=== PATIENT | female | born 1930 | race Caucasian/White ===

== ENCOUNTER 2016-09-25 09:45 | Emergency (ER) | payer MEDICARE, OTHER ==
[~2016-09-25] VITALS: Ht 157.5 cm; Wt 63.0 kg
[2016-09-25 11:11] LABS: BASOPHILS % (AUTO) 0 % (0-10); EOSINOPHILS # (AUTO) 0.2 10^3/uL (0.0-0.3); EOSINOPHILS % (AUTO) 4 % (0-10); LYMPHOCYTES % (AUTO) 23 % (12-44); MEAN CORPUSCULAR HEMOGLOBIN 33 PG (25-34); MEAN CORPUSCULAR HGB CONC 33 G/DL (32-36); MEAN CORPUSCULAR VOLUME 99 FL (80-99); MEAN PLATELET VOLUME 9.4 FL (7.4-10.4); MONOCYTES # (AUTO) 0.3 X 10^3 (0.0-1.0); MONOCYTES % (AUTO) 7 % (0-12); NEUTROPHILS # (AUTO) 2.7 X 10^3 (1.8-7.8); NEUTROPHILS % (AUTO) 65 % (42-75); PLATELET COUNT 246 10^3/uL (130-400); RED BLOOD COUNT 2.98 10^6/uL (4.35-5.85); RED CELL DISTRIBUTION WIDTH 12.7 % (10.0-14.5); WHITE BLOOD COUNT 4.1 10^3/uL (4.3-11.0)
[2016-09-25 11:24] LABS: ALBUMIN 3.7 GM/DL (3.2-4.5); BILIRUBIN,TOTAL 0.3 MG/DL (0.1-1.0); CALCIUM 9.7 MG/DL (8.5-10.1); CREATININE SERUM 1.13 MG/DL (0.60-1.30); POTASSIUM 3.7 MMOL/L (3.6-5.0); TOTAL PROTEIN 6.1 GM/DL (6.4-8.2)
--- NOTE | 2016-09-25 12:11 | ED General ---
General Chief Complaint: General Problems/Pain Stated Complaint: POSS DEHYDRATED/SLEEPLESSNESS Nursing Triage Note: PT DAUGHTER REPORTS PT WAS UNABLE TO SLEEP LAST NOC. SHE STATES SHE HAS HAD A "CHRONIC COUGH" AND HAS SOME DIFFICULTY SWALLOWING. PT DAUGHTER REPORTS SHE IS CONCERNED FOR GOITER. SHE STATES PT HAS NOT BEEN ACTING RIGHT AND SHE WANTS HER BRAIN CHECKED OUT BECAUSE OF HER AGE. Nursing Sepsis Screen: No Definite Risk Source of Information: Patient Exam Limitations: No Limitations (CEE DENNY MD) History of Present Illness Time Seen by Provider: 12:07 Initial Comments The patient is an 86-year-old white female brought to the emergency room by her daughter. The concern is general. She is apparently not been herself for the last 2-4 weeks. The daughter notes that she at times seems to word search. There has been no loss of motor skills. She seems to be less physically active than previously. She is disturbed because she thinks she did not sleep at all last night but this is not a usual occurrence. She reports being physically active and knows her lawn and cleans up the stalls after her horses. She has a history of hypothyroidism and the daughter is concerned about the possibility of goiter as she coughs and has some swallowing difficulty particularly with large pills. Associated Systoms: Cough (chronic) (CEE DENNY MD) Constitutional: see HPI EENTM: nose congestion Respiratory: see HPI Cardiovascular: no symptoms reported Gastrointestinal: no symptoms reported Genitourinary: no symptoms reported Musculoskeletal: no symptoms reported Skin: no symptoms reported Psychiatric/Neurological: No Symptoms Reported Hematologic/Lymphatic: No Symptoms Reported Immunological/Allergic: no symptoms reported (CEE DENNY MD) Past Lfdocja-Zqmrxr-Tdzxkd Hx Patient Social History Alcohol Use: Rarely Uses Recreational Drug Use: No Smoking Status: Never a Smoker 2nd Hand Smoke Exposure: No Recent Foreign Travel: No Contact w/Someone Who Travel: No Recent Infectious Disease Expo: No Recent Hopitalizations: No (CEE DENNY MD) Seasonal Allergies Seasonal Allergies: No (CEE DENNY MD) Cardiovascular Cardiac Disorders: Hypertension (CEE DENNY MD) Physical Exam Vital Signs Vital Sign - Last 12Hours 09/25/16 09:55 Temp 98.2 Pulse 84 Resp 16 B/P (MAP) 184/79 Pulse Ox 98 O2 Delivery Room Air (CONCEPCIÓN GODDARD MD) Vital Signs Capillary Refill : Less Than 3 Seconds (CEE DENNY MD) General Appearance: No Apparent Distress, WD/WN Eyes: Bilateral Eye Normal Inspection HEENT: Normal ENT Inspection Neck: Normal Inspection Respiratory: Chest Non Tender, Lungs Clear, Normal Breath Sounds, No Accessory Muscle Use, No Respiratory Distress Cardiovascular: Regular Rate, Rhythm, No Edema, No Gallop, No JVD, No Murmur, Normal Peripheral Pulses Back: Normal Inspection Extremity: Normal Capillary Refill, Normal Inspection, Normal Range of Motion, Non Tender, No Calf Tenderness, No Pedal Edema Neurologic/Psychiatric: Alert, Oriented x3, No Motor/Sensory Deficits, Normal Mood/Affect Skin: Normal Color Lymphatic: No Adenopathy (CEE DENNY MD) Progress/Results/Core Measures Results/Orders Lab Results Laboratory Tests Test 09/25/16 11:00 09/25/16 12:32 Range/Units White Blood Count 4.1 L 4.3-11.0 10^3/uL Red Blood Count 2.98 L 4.35-5.85 10^6/uL Hemoglobin 9.8 L 11.5-16.0 G/DL Hematocrit 30 L 35-52 % Mean Corpuscular Volume 99 80-99 FL Mean Corpuscular Hemoglobin 33 25-34 PG Mean Corpuscular Hemoglobin Concent 33 32-36 G/DL Red Cell Distribution Width 12.7 10.0-14.5 % Platelet Count 246 130-400 10^3/uL Mean Platelet Volume 9.4 7.4-10.4 FL Neutrophils (%) (Auto) 65 42-75 % Lymphocytes (%) (Auto) 23 12-44 % Monocytes (%) (Auto) 7 0-12 % Eosinophils (%) (Auto) 4 0-10 % Basophils (%) (Auto) 0 0-10 % Neutrophils # (Auto) 2.7 1.8-7.8 X 10^3 Lymphocytes # (Auto) 1.0 1.0-4.0 X 10^3 Monocytes # (Auto) 0.3 0.0-1.0 X 10^3 Eosinophils # (Auto) 0.2 0.0-0.3 10^3/uL Basophils # (Auto) 0.0 0.0-0.1 10^3/uL Sodium Level 131 L 135-145 MMOL/L Potassium Level 3.7 3.6-5.0 MMOL/L Chloride Level 96 L 98-107 MMOL/L Carbon Dioxide Level 29 21-32 MMOL/L Anion Gap 6 5-14 MMOL/L Blood Urea Nitrogen 12 7-18 MG/DL Creatinine 1.13 0.60-1.30 MG/DL Estimat Glomerular Filtration Rate 46 BUN/Creatinine Ratio 11 Glucose Level 124 H 70-105 MG/DL Calcium Level 9.7 8.5-10.1 MG/DL Total Bilirubin 0.3 0.1-1.0 MG/DL Aspartate Amino Transf (AST/SGOT) 25 5-34 U/L Alanine Aminotransferase (ALT/SGPT) 18 0-55 U/L Alkaline Phosphatase 60 40-136 U/L Total Protein 6.1 L 6.4-8.2 GM/DL Albumin 3.7 3.2-4.5 GM/DL Urine Color YELLOW Urine Clarity CLEAR Urine pH 7 5-9 [address]rine Specific [place] 1.005 L 1.016-1.022 Urine Protein NEGATIVE NEGATIVE Urine Glucose (UA) NEGATIVE NEGATIVE Urine Ketones NEGATIVE NEGATIVE Urine Nitrite NEGATIVE NEGATIVE Urine Bilirubin NEGATIVE NEGATIVE Urine Urobilinogen NORMAL NORMAL MG/DL Urine Leukocyte Esterase NEGATIVE NEGATIVE Urine RBC (Auto) NEGATIVE NEGATIVE Urine RBC NONE /HPF Urine WBC RARE /HPF Urine Squamous Epithelial Cells RARE /HPF Urine Crystals NONE /LPF Urine Bacteria NEGATIVE /HPF Urine Casts NONE /LPF Urine Mucus NEGATIVE /LPF Urine Culture Indicated NO (CONCEPCIÓN GODDARD MD) Vital Signs/I&O Vital Sign - Last 12Hours 09/25/16 09:55 Temp 98.2 Pulse 84 Resp 16 B/P (MAP) 184/79 Pulse Ox 98 O2 Delivery Room Air (CONCEPCIÓN GODDARD MD) Blood Pressure Mean: 114 Progress Note : Progress Note Assumed care of the patient from Dr. DENNY at 1220 pending., Chest x-ray and CT. Monitor patient. 1315: I have reviewed all of the data as well as interviewed and evaluated the patient. No significant acute findings noted and this was discussed with the patient and her daughter. We did discuss aging and her ongoing medical problems including anemia and hypothyroidism. Overall patient is doing quite well. She will follow-up with her doctor next week for further evaluation related to the thyroid and her anemia. We did discuss diet and appropriate amount food and fluid needs. Patient does admit to ruminating about medical concerns last night and states that is likely why she did not sleep well last night. Patient and daughter very appreciative of care and evaluation. Discharged home with return precautions. Patient verbalize understanding instructions and agreement with plan. (CONCEPCIÓN GODDARD MD) Diagnostic Imaging Diagonstic Imaging: CT Plain Films/CT/US/NM/MRI: head Comments [facility] [place] [place] NAME: [facility]AR [facility] REC#: [id number] PT STATUS: REG ER : 1930 PHYSICIAN: CEE DENNY MD ADMIT DATE: 09/25/16/ER Draft Date of Exam:09/25/16 CT HEAD WO INDICATION: Confusion. Altered mental status. TECHNIQUE: Routine non contrast-enhanced axial images were obtained from the skull base to the vertex. COMPARISON: None. FINDINGS: The ventricles and cortical sulci are diffusely prominent, compatible with age-related volume loss. There are confluent areas of abnormal, low attenuation in the periventricular white matter. This is consistent with small vessel ischemic changes; age-indeterminate. There is no prior study available for comparison. There is no midline shift or mass-effect. No acute intra-axial hemorrhage is seen. There are no abnormal areas of increased or decreased density to suggest acute hemorrhage or edema. No extra-axial masses or collections are present. The bony calvarium is intact. The visualized paranasal sinuses are unremarkable. The mastoid air cells are clear. IMPRESSION: 1. No acute intracranial abnormality. No CT evidence of mass, acute infarct or intracranial hemorrhage. 2. Small vessel ischemic changes in the periventricular and subcortical white matter; likely chronic. Dictated on workstation # [id number] Dict: 09/25/16 1242 Trans: 09/25/16 1245 [facility] [id number] Interpreted by: CIERRA COPELAND Electronically signed by: Diagonstic Imaging: Xray Plain Films/CT/US/NM/MRI: chest Comments [facility] [place], [place] NAME: MARIMAR [facility] REC#: [id number] PT STATUS: REG ER : 1930 PHYSICIAN: CEE DENNY MD ADMIT DATE: 09/25/16/ER Draft Date of Exam:09/25/16 CHEST 1 VIEW, AP/PA ONLY Portable upright radiograph of the chest. INDICATION: Chronic cough. FINDINGS: There is minimal left basilar atelectasis or scarring. The right lung is clear. The heart size is normal. No effusion or pneumothorax. The mediastinum and freddie appear unremarkable. IMPRESSION: Minimal left basilar atelectasis or scarring. Dictated on workstation # [id number] Dict: 09/25/16 1231 Trans: 09/25/16 1234 [id number] Interpreted by: AMANDA DAVE MD Electronically signed by: (CONCEPCIÓN GODDARD MD) Departure Impression Impression: Primary Impression: Malaise Additional Impression: Forgetfulness Disposition: 01 HOME, SELF-CARE Condition: Stable Departure-Patient Inst. Referrals: BARRY ALMONTE MD (PCP) Primary Care Physician FATOU SRIVASTAVA MD (Family) Primary Care Physician Patient Instructions: Fatigue (DC) Add. Discharge Instructions: All discharge instructions reviewed with patient and/or family. Voiced understanding. Continue home medications as directed. Eat a normal diet and drink adequate amount of fluids. Follow up with your Dr. in a few days for recheck as well as for your anemia and thyroid concerns. Return for worse pain, fever, vomiting, weakness, breathing problems or other concerns as needed. CEE DENNY MD Sep 25, 2016 12:11 CONCEPCIÓN GODDARD MD Sep 25, 2016 13:24
--- NOTE | 2016-09-25 12:34 | Diagnostic Imaging Report ---
Portable upright radiograph of the chest. INDICATION: Chronic cough. FINDINGS: There is minimal left basilar atelectasis or scarring. The right lung is clear. The heart size is normal. No effusion or pneumothorax. The mediastinum and freddie appear unremarkable. IMPRESSION: Minimal left basilar atelectasis or scarring. Dictated by: Dictated on workstation # [id number]
[2016-09-25 12:44] LABS: BILIRUBIN,URINE NEGATIVE (NEGATIVE); KETONES,URINE NEGATIVE (NEGATIVE); LEUKOCYTE ESTERASE ,URINE NEGATIVE (NEGATIVE); NITRITE,URINE NEGATIVE (NEGATIVE); PH,URINE 7 (5-9); PROTEIN,URINE NEGATIVE (NEGATIVE); UROBILINOGEN,URINE NORMAL (NORMAL)
--- NOTE | 2016-09-25 12:45 | Diagnostic Imaging Report ---
INDICATION: Confusion. Altered mental status. TECHNIQUE: Routine non contrast-enhanced axial images were obtained from the skull base to the vertex. COMPARISON: None. FINDINGS: The ventricles and cortical sulci are diffusely prominent, compatible with age-related volume loss. There are confluent areas of abnormal, low attenuation in the periventricular white matter. This is consistent with small vessel ischemic changes; age-indeterminate. There is no prior study available for comparison. There is no midline shift or mass-effect. No acute intra-axial hemorrhage is seen. There are no abnormal areas of increased or decreased density to suggest acute hemorrhage or edema. No extra-axial masses or collections are present. The bony calvarium is intact. The visualized paranasal sinuses are unremarkable. The mastoid air cells are clear. IMPRESSION: 1. No acute intracranial abnormality. No CT evidence of mass, acute infarct or intracranial hemorrhage. 2. Small vessel ischemic changes in the periventricular and subcortical white matter; likely chronic. Dictated by: Dictated on workstation # [id number]
[2016-09-25 12:56] LABS: SQUAMOUS EPITHELIAL CELL,UR RARE /HPF; WBC,URINE RARE /HPF
[2016-09-25 13:31] VITALS: BP 176/84
== END 2016-09-25 13:31 | disposition home or self-care (01) ==
LOC: ER 09:50
DX: R53.81 Other malaise (principal); R41.3 Other amnesia; E03.9 Hypothyroidism, unspecified; I10 Essential (primary) hypertension
CPT/HCPCS: 36415; 70450; 71010; 80053; 81000; 85025; 99282

== ENCOUNTER 2017-07-04 05:46 | Outpatient (CLI) | payer MEDICARE ==
[~2017-07-04] VITALS: Ht 157.5 cm; Wt 63.0 kg
[2017-07-04] MEDS ORDERED: THYR90TA12 PO (10:37)
[2017-07-04] MEDS ORDERED: LOSA1TAB20 PO (10:37)
== END 2017-07-04 10:39 ==
LOC: PREOP 05:46
PROVIDERS: ATTEND Surgery
DX: Z01.818 Encounter for other preprocedural examination (principal); D50.9 Iron deficiency anemia, unspecified; R19.4 Change in bowel habit

== ENCOUNTER 2017-07-08 09:08 | Day surgery (SDC) | payer MEDICARE ==
[~2017-07-08] VITALS: Ht 162.6 cm; Wt 63.0 kg
[~2017-07-08 09:08] MED LIST: LOSA1TAB20 PO; THYR90TA12 PO
[2017-07-08] MEDS ORDERED: NS IV 500 ML 500 ML ONE (09:15)
[2017-07-08 09:25] VITALS: BP 142/67
[2017-07-08] MEDS ORDERED: NS IV 500 ML 500 ML IV PRN (09:25)
[2017-07-08] MEDS ORDERED: NS IV 500 ML 500 ML IV SCH (09:30)
[2017-07-08] MEDS ORDERED: HURRICAINE EXT TUBE (BENZOCAINE) XX PRN (09:30)
[2017-07-08 09:53] LABS: HEMOGLOBIN 8.8 G/DL (11.5-16.0); RED BLOOD COUNT 2.77 10^6/uL (4.35-5.85); RED CELL DISTRIBUTION WIDTH 14.3 % (10.0-14.5); WHITE BLOOD COUNT 3.5 10^3/uL (4.3-11.0)
[2017-07-08] MEDS ORDERED: HURRICAINE EXT TUBE (BENZOCAINE) ONE (11:37)
[2017-07-08] MEDS ORDERED: fentaNYL INJECTION 100 MCG/2 ML AMP ONE (11:37)
[2017-07-08] MEDS ORDERED: MIDAZOLAM 2 MG/2 ML (VERSED) VIAL ONE ×2 (11:37)
[2017-07-08] MEDS: fentaNYL INJECTION 100 MCG/2 ML AMP IVP PRN ×4 (11:53→12:08)
[2017-07-08] MEDS: MIDAZOLAM 2 MG/2 ML (VERSED) VIAL IVP PRN ×4 (11:54→12:10)
--- NOTE | 2017-07-08 12:06 | HISTORY AND PHYSICAL ---
DATE OF SERVICE: 07/08/2017 DIAGNOSES: 1. Iron deficiency anemia. 2. Change in bowel habits. HISTORY OF PRESENT ILLNESS: This lady, who tends to be active, has been found to be anemic with an iron deficiency picture. In addition, she reports a recent change in her bowel habits, with a tendency toward constipation. She reports a history of a bleeding peptic ulcer 35 years ago; she has not undergone screening colonoscopy in her lifetime. PAST MEDICAL HISTORY: Hypertension. MEDICATIONS: Losartan. PERSONAL AND SOCIAL HISTORY: Despite her advanced age, she is quite active and independent. PHYSICAL EXAMINATION: GENERAL: She appears to be reasonably comfortable. NECK: Supple and there is no jugular venous distention. ABDOMEN: Soft and nontender. ASSESSMENT: Lady with iron deficiency anemia. Previous history of gastric ulcer. I have offered upper endoscopy with concomitant colonoscopy. I've also discussed the differential diagnosis of recurrent ulcers and polyps. She seems to understand and the procedure will be performed today. Job ID: [id number] DocumentID: [id number] Dictated Date: 07/08/2017 11:49:24 [employer] Date: 07/08/2017 12:05:17 Dictated By: MONCHO CAICEDO MD MTDD
[2017-07-08 12:50] VITALS: BP 152/75
[2017-07-08 13:20] VITALS: BP 140/63
[2017-07-08 13:30] VITALS: BP 140/63
--- NOTE | 2017-07-08 14:09 | Conscious Sedation/ASA ---
Conscious Sedation Pre-Proced Time Reviewed: 10:05 ASA Class: 2 Airway Mallampati Classification: ([place] appropriate class) I. II. III, IV Lungs Heart ASA score ASA 1: a normal healthy patient ASA 2: a patient with a mild systemic disease (mid diabetes, controlled hypertension, obesity ASA 3: a patient with a severe systemic disease that limits activity (angina , COPD, prior Myocardial infarction) ASA 4: a patient with an incapacitating disease that is a constant threat to life (CHF, renal failure) ASA 5: a moribund patient not expected to survive 24 hrs. (ruptured aneurysm) ASA 6: a declared brain patient whose organs are being harvested. For emergent operations, add the letter E after the classification Grade 1 Sedation Plan: Discussed options with patient/fam Note The patient is an appropriate candidate to undergo the planned procedure, sedation, and anesthesia. The patient immediately re-assessed prior to indication. MONCHO CAICEDO MD July 08, 2017 2:09 pm
--- NOTE | 2017-07-08 17:44 | OPERATIVE REPORT ---
DATE OF SERVICE: 07/08/2017 PROCEDURE #1: Upper GI endoscopy/biopsy of a sessile lesion in the duodenum. SURGEON: Moncho Caicedo MD INDICATION FOR PROCEDURE: This lady came in for an upper endoscopy with concomitant colonoscopy to evaluate iron deficiency anemia. She reported a history of bleeding peptic ulcers more than 35 years ago and has not undergone screening colonoscopy in her lifetime. Informed consent was obtained after reviewing the procedures in detail. DESCRIPTION OF PROCEDURE: EGD/biopsy of lesion in the duodenum. She was placed in left lateral decubitus position and her vital signs were monitored. Conscious sedation was achieved using Versed and fentanyl. The flexible gastroscope was introduced down the esophagus, past the stomach, into the proximal duodenum. FINDINGS: Esophagus: Quite tortuous with a long hiatal hernia. No mucosal lesion was identified. Stomach: Normal. Duodenum: A sessile lesion about 8 mm in diameter was found at the first part, just past the pyloric opening. Multiple biopsies were obtained. She tolerated the procedure well and was turned around in preparation for colonoscopy. IMPRESSION: Iron deficiency anemia. Sessile lesion in the duodenum. Biopsy pending. PROCEDURE #2: Colonoscopy. Digital rectal examination was unremarkable. The colonoscope was then introduced into the rectum and advanced with difficulty to the cecum. The quality of bowel preparation was excellent. The scope was then withdrawn slowly and the mucosa examined in a systematic fashion. FINDINGS: Very few sigmoid diverticula. No polyps were found. She tolerated the procedures well and was taken back to the nursing area in a stable condition. IMPRESSION: Iron deficiency anemia. No polyps. Job ID: [id number] DocumentID: [id number] Dictated Date: 07/08/2017 12:38:53 [facility] Nurse Date: 07/08/2017 17:43:49 Dictated By: MONCHO CAICEDO MD [facility]
== END 2017-07-08 13:30 | disposition home or self-care (01) ==
LOC: ENDO 09:08
PROVIDERS: ATTEND Surgery
DX: D50.9 Iron deficiency anemia, unspecified (principal); K57.30 Diverticulosis of large intestine without perforation or abscess without bleeding; R19.4 Change in bowel habit; I10 Essential (primary) hypertension
CPT/HCPCS: 36415; 85027; 88305

== ENCOUNTER → 2018-11-27 | Outpatient (CLI) | payer MEDICARE ==
--- NOTE | 2018-11-27 12:46 | Diagnostic Imaging Report ---
Right hand 1011 hours. INDICATION: Fall, hand pain. 3 views were obtained. There are no prior studies available for comparison. FINDINGS: There is no fracture, dislocation or acute bony abnormality evident. The osseous structures are demineralized and there is fairly severe degenerative disease involving the PIP and DIP joints and the triscaphe joint. There is also moderate narrowing of the radiocarpal joint. Soft tissues are unremarkable. IMPRESSION: There is no evidence for an acute bony abnormality. Dictated by: Dictated on workstation # [id number]
--- NOTE | 2018-11-27 13:07 | Diagnostic Imaging Report ---
EXAMINATION: Right hip at 10:17 a.m. INDICATION: Hip pain. AP and lateral views were obtained. There are no prior studies available for comparison. FINDINGS: There is no fracture, dislocation, or acute bony abnormality evident. There is moderate degenerative disease of the hip joint and mild sclerosis of the right sacroiliac joint. There also appears to be fairly severe degenerative disc and bony disease in the visualized lower lumbar spine. The soft tissues are unremarkable. IMPRESSION: 1. There is no evidence for an acute bony abnormality. 2. 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 There is also fairly severe degenerative disc and bony disease of the visualized lower lumbar spine. Dictated by: Dictated on workstation # [id number]
== END ==
LOC: RAD FS 10:08
PROVIDERS: ATTEND Nurse Practitioner
DX: M16.11 Unilateral primary osteoarthritis, right hip (principal); M47.816 Spondylosis without myelopathy or radiculopathy, lumbar region; M51.36 Other intervertebral disc degeneration, lumbar region; M79.641 Pain in right hand; W19.XXXA Unspecified fall, initial encounter
CPT/HCPCS: 73130; 73502

== ENCOUNTER 2019-07-06 11:46 | Outpatient (RCR) | payer MEDICARE, MEDICAID ==
[2019-06-26 12:22] VITALS: BP 125/64
[2019-06-29 10:10] VITALS: BP 162/73
[~2019-07-06 11:46] MED LIST changes: +IRON SUCROSE 200 MG/10 ML (VENOFER) VIAL IV ONE; +IRON SUCROSE 200 MG/10 ML (VENOFER) VIAL IV SCH
[2019-07-06] MEDS ORDERED: IRON SUCROSE 200 MG/10 ML (VENOFER) VIAL IV ONE (12:15)
[2019-07-06 12:25] VITALS: BP 151/72
== END 2019-07-06 12:32 | disposition home or self-care (01) ==
LOC: SDC 11:46
PROVIDERS: ATTEND Family Medicine
DX: D50.9 Iron deficiency anemia, unspecified (principal)
CPT/HCPCS: 96365; 96374

== ENCOUNTER 2019-07-13 10:05 | Outpatient (RCR) | payer MEDICARE, MEDICAID ==
[2019-07-10 15:45] VITALS: BP 143/89
[2019-07-10] MEDS: IRON SUCROSE 200 MG/10 ML (VENOFER) VIAL IV SCH (15:56)
[~2019-07-13] VITALS: Ht 162.5 cm; Wt 63.0 kg
[2019-07-13 10:05] VITALS: BP 166/85
[~2019-07-13 10:05] MED LIST changes: -IRON SUCROSE 200 MG/10 ML (VENOFER) VIAL IV SCH
[2019-07-13] MEDS: IRON SUCROSE 200 MG/10 ML (VENOFER) VIAL IV SCH (10:17)
== END 2019-07-13 10:55 | disposition home or self-care (01) ==
LOC: SDC 10:05
PROVIDERS: ATTEND Family Medicine
DX: D50.9 Iron deficiency anemia, unspecified (principal)
CPT/HCPCS: 96365